=== PATIENT | female | born 1940 | race Caucasian/White ===

== ENCOUNTER 2019-02-25 15:56 | Emergency (ER) | payer MEDICARE, OTHER ==
[~2019-02-25] VITALS: Ht 172.7 cm; Wt 67.1 kg
[2019-02-25] MEDS ORDERED: LIDOCAINE 1% HCL (LOCAL ANESTH.) INJ 20ML MDV IJ ONE (21:00)
[2019-02-25 21:57] VITALS: BP 146/83
== END 2019-02-25 22:02 | disposition home or self-care (01) ==
LOC: ER 15:56
DX: M25.461 Effusion, right knee (principal); M25.561 Pain in right knee; I48.91 Unspecified atrial fibrillation; E78.5 Hyperlipidemia, unspecified
CPT/HCPCS: 20610; 29505; 73562; 99284; J2001